=== PATIENT | male | born 1975 | race Caucasian/White ===

== ENCOUNTER 2024-11-04 21:43 | Emergency (ER) | payer SELFPAY ==
[~2024-11-04] VITALS: Ht 180.3 cm; Wt 86.2 kg
[2024-11-04] MEDS ORDERED: AMOX500C2 PO (23:18)
[2024-11-04 23:26] VITALS: BP 114/66; TEMP 98; O2SAT 98
== END 2024-11-04 23:26 | disposition home or self-care (01) ==
LOC: ER 21:48
DX: K04.7 Periapical abscess without sinus (principal)

== ENCOUNTER 2024-11-19 13:48 | Emergency (ER) | payer SELFPAY ==
[~2024-11-19] VITALS: Ht 180.3 cm; Wt 83.9 kg
[~2024-11-19 13:48] MED LIST: AMOX500C2 PO
[2024-11-19 14:13] VITALS: BP 141/69; TEMP 97.9
[2024-11-19] MEDS ORDERED: KETOROLAC TROMETHAMINE 15 MG/ML VIAL ONE (14:32)
[2024-11-19] MEDS ORDERED: CEPH-570 PO (14:37)
[2024-11-19] MEDS ORDERED: IBUP-1490 PO (14:38)
[2024-11-19] MEDS: KETOROLAC TROMETHAMINE 15 MG/ML VIAL IM ONE (14:39)
[2024-11-19 14:45] VITALS: O2SAT 99
== END 2024-11-19 14:45 | disposition home or self-care (01) ==
LOC: ER 13:51
DX: L03.116 Cellulitis of left lower limb (principal); M79.672 Pain in left foot
CPT/HCPCS: 99284; 96372; J1885

== ENCOUNTER 2024-11-20 10:27 | Emergency (ER) | payer SELFPAY ==
[~2024-11-20] VITALS: Ht 180.3 cm; Wt 83.9 kg
[~2024-11-20 10:27] MED LIST changes: +CEPH-570 PO; +IBUP-1490 PO
[2024-11-20] MEDS ORDERED: KETOROLAC TROMETHAMINE INJ 30 MG/ML VIAL ONE (10:39)
[2024-11-20] MEDS: KETOROLAC TROMETHAMINE INJ 30 MG/ML VIAL IM ONE (10:43)
[2024-11-20] MEDS ORDERED: MORPHINE SULFATE INJ 4 MG/ML DISP.SYRIN ONE (10:54)
[2024-11-20] MEDS: NITROGLYCERIN 0.4 MG/TAB BOTTLE SL ONE (11:00)
[2024-11-20] MEDS: MORPHINE SULFATE INJ 2 MG/ML DISP.SYRIN IV ONE (11:00)
[2024-11-20] MEDS ORDERED: MORPHINE SULFATE INJ 2 MG/ML DISP.SYRIN IM ONE (11:00)
[2024-11-20] MEDS ORDERED: NITROGLYCERIN 0.4 MG/TAB BOTTLE ONE (11:02)
[2024-11-20] MEDS ORDERED: ASPIRIN 325 MG TABLET ONE (11:02)
[2024-11-20 11:04] LABS: BASOPHILS % (AUTO) 0.1 % (0.0-2.0); EOSINOPHILS # (AUTO) 0.1 K/uL (0.0-0.7); EOSINOPHILS % (AUTO) 0.3 % (0.0-6.0); HEMATOCRIT 51 % (39-51); HEMOGLOBIN 17.3 g/dL (13.5-17.5); LYMPHOCYTES # (AUTO) 1.4 K/uL (0.8-4.8); LYMPHOCYTES % (AUTO) 5.2 % (20.0-44.0); MEAN CORPUSCULAR HEMOGLOBIN 33 PG (26.0-33.0); MEAN CORPUSCULAR HGB CONC 34 g/dl (31.0-36.0); MEAN CORPUSCULAR VOLUME 95 fL (80-96); MONOCYTES # (AUTO) 1.8 K/uL (0.1-1.30); MONOCYTES % (AUTO) 6.6 % (2.0-12.0); NEUTROPHILS # (AUTO) 23.7 K/uL (1.8-8.9); NEUTROPHILS % (AUTO) 87.8 % (43.0-81.0); PLATELET COUNT (AUTO) 195 K/uL (150-450); RED BLOOD CELL COUNT(AUTO) 5.32 MIL/uL (4.5-6.0); RED CELL DISTRIBUTION WIDTH 13.4 % (11.5-15.0); WHITE BLOOD COUNT (AUTO) 26.9 K/uL (4.3-11.0)
[2024-11-20] MEDS: ASPIRIN 325 MG TABLET PO ONE (11:05)
[2024-11-20] MEDS ORDERED: HEPARIN SODIUM, PORCINE 5000 UNITS/1 ML VIAL ONE (11:06)
[2024-11-20] MEDS: HEPARIN SODIUM, PORCINE 5000 UNITS/1 ML VIAL IV ONE (11:11)
[2024-11-20 11:28] LABS: CARBON DIOXIDE 31 mmol/L (21-32); CHLORIDE 105 mmol/L (98-107); CREATININE 1.8 mg/dL (0.6-1.3); GLUCOSE 107 mg/dL (74-106); POTASSIUM 4.9 mmol/L (3.5-5.1); SODIUM SERUM 140 mmol/L (136-145); UREA NITROGEN, BLOOD 22 mg/dL (7-18)
[2024-11-20 11:32] LABS: ALANINE AMINOTRANSFERASE 66 U/L (12-78); ALBUMIN 3.5 g/dL (3.4-5.0); ALKALINE PHOSPHATASE 93 U/L (46-116); ASPARTATE AMINOTRANSFERASE 40 U/L (15-37); BILIRUBIN,DIRECT 0.2 mg/dL (0.0-0.2); BILIRUBIN,TOTAL 0.6 mg/dL (0.2-1.0); NT-PRO BNP 1149 pg/mL (0-125); TOTAL PROTEIN, SERUM 7.5 g/dL (6.4-8.2)
[2024-11-20 11:37] VITALS: BP 128/82; TEMP 98.6; O2SAT 99
== END 2024-11-20 11:38 | disposition short-term general hospital (02) ==
LOC: ER 10:37
DX: I21.3 ST elevation (STEMI) myocardial infarction of unspecified site (principal); M54.6 Pain in thoracic spine
CPT/HCPCS: 99291; 96374; 71045; 96375; 96372; 93005; 85025; 80048; 80076; 36415; 84484; 83880; J1885; J1644; J2270